=== PATIENT | female | born 1965 | race American Indian/Alaskan Native ===

== ENCOUNTER 2016-12-03 10:04 | Emergency (ER) | payer BC, OTHER ==
[2016-12-03 10:05] VITALS: BMI 36.8
[2016-12-03 10:27] VITALS: TEMP 98.5
--- NOTE | 2016-12-03 11:25 | ED PDOC ---
Arrival/HPI - General Chief Complaint: Lower Extremity Problem/Injury Time Seen by Provider: 12/03/16 11:06 Historian: Patient - History of Present Illness Narrative History of Present Illness (Text): 12/03/16 11:11 Tamanna Friedman is a 51 year old female, whose past medical history includes hyperlipidemia, who presents to the emergency department complaining of left leg pain and swelling for three weeks. Patient notes that she cannot bend her leg and has been wearing a brace and taking Tylenol and Motrin to some relief. Patient states that she saw her PMD this morning for a regular check-up and was prescribed an X-ray, directing patient to emergency department. Patient says that she has had similar symptoms before on her right leg which was found to be tendonitis. Patient denies any fever, chills, chest pain, shortness of breath, nausea, vomiting, diarrhea, urinary symptoms, back pain, neck pain, headache, dizziness, or any other complaints. PMD: Dr. Contreras Time/Duration: < month Symptom Onset: Gradual Symptom Course: Unchanged Severity Level: Mild Activities at Onset: Light Context: Home Past Medical History - Provider Review Nursing Documentation Reviewed: Yes - Cardiac Hx Hypertension: Yes - Pulmonary Hx Respiratory Disorders: No - Neurological Hx Neurological Disorder: No - HEENT Hx HEENT Disorder: No - Renal Hx Renal Disorder: No - Endocrine/Metabolic Hx Endocrine Disorders: No - Hematological/Oncological Hx Blood Disorders: No - Integumentary Hx Dermatological Disorder: No - Musculoskeletal/Rheumatological Hx Back Pain: Yes Hx Spinal Stenosis: Yes - Gastrointestinal Hx Gastrointestinal Disorders: No - Genitourinary/Gynecological Hx Genitourinary Disorders: No - Psychiatric Hx Psychophysiologic Disorder: No Hx Substance Use: No - Surgical History Hx Appendectomy: Yes Hx Tubal Ligation: Yes Family/Social History - Physician Review Nursing Documentation Reviewed: Yes Family/Social History: No Known Family HX Smoking Status: Never Smoked Hx Alcohol Use: Yes Frequency of alcohol use: Socially Hx Substance Use: No Allergies/Home Meds Allergies/Adverse Reactions: Allergies Latex, Natural Rubber Allergy (Verified 12/03/16 10:20) RASH shellfish derived Allergy (Verified 12/03/16 10:20) RASH Home Medications: Home Meds Medication Instructions Recorded Confirmed Crestor 10 mg PO DAILY 01/30/15 12/03/16 Cholecalciferol (Vitamin D3) 1 cap PO MWF 12/03/16 12/03/16 [Vitamin D3] Folic Acid 1 tab PO DAILY 12/03/16 12/03/16 Tramadol HCl [Ultram] 50 mg PO PRN PRN 12/03/16 12/03/16 Review of Systems - Physician Review All systems were reviewed & negative as marked: Yes - Review of Systems Constitutional: absent: Fevers, Night Sweats Eyes: absent: Vision Changes ENT: absent: Hearing Changes Respiratory: absent: SOB, Cough Cardiovascular: absent: Chest Pain, Syncope Genitourinary Female: absent: Dysuria, Urine Output Changes Musculoskeletal: Other (Left leg pain and swelling) Skin: absent: Rash Neurological: absent: Headache Endocrine: absent: Diaphoresis Hemo/Lymphatic: absent: Easy Bleeding Psychiatric: absent: Depression Physical Exam - Physical Exam Narrative Physical Exam (Text): Constitutional: No acute distress. Head: Normocephalic. Atraumatic. Eyes: PERRL. ENT: Moist mucous membranes. Neck: Supple. Cardiovascular: Regular rate. GI: Soft. Nontender. Nondistended. Back: No CVA tenderness. Musculoskeletal: No erythema, no warmth. Able to flex left leg but not fully. Mild increase of edema in left knee. Skin: No rash. Neurologic: Alert, no focal deficit. Vital Signs Reviewed: Yes Vital Signs Temp Pulse Resp BP Pulse Ox 12/03/16 12:05 64 18 136/86 96 12/03/16 10:25 98.5 F 67 16 138/90 95 Temperature: Afebrile Blood Pressure: Normal Pulse: Regular Respiratory Rate: Normal Appearance: Positive for: Well-Appearing, Non-Toxic, Comfortable Pain Distress: None Mental Status: Positive for: Alert and Oriented X 3 Medical Decision Making ED Course and Treatment: 12/03/16 11:06 Impression: 51 year old female complaining of left leg pain and swelling for 3 weeks. Plan: -- Left Knee X-ray -- LE Ultrasound negative for DVT. -- Reassess and disposition Progress Notes: 12/03/16 13:02 Left Knee X-ray: Creator : Gerald Norris MD FINDINGS: BONES:No obvious fracture. JOINTS:No significant degenerative changes. Inferior patellar osteophytes. JOINT EFFUSION:None. OTHER FINDINGS:High-riding patella. Suprapatellar joint effusion. Evaluate for patellar tendon rupture. IMPRESSION:High-riding patella. Suprapatellar joint effusion. Evaluate for patellar tendon rupture. Discussed with Dr. Ochoa at approximately 12:35 p.m. on 12/03/2016. Patient with ability to extend and hold knee extended. Patient refused crutches and knee brace. Dr. Contreras informed of case after patient discharged, states he will call patient now to arrange follow up. - RAD Interpretation Radiology Orders: 12/03/16 11:24 KNEE LEFT 2 VIEWS (AP & LAT) [RAD] Stat KNEE WITH PATELLA LEFT 3 VIEW [RAD] Stat 12/03/16 11:45 DUPLEX LOWER EXTRM VEIN LEFT [US] Stat Disposition/Present on Arrival - Present on Arrival Any Indicators Present on Arrival: No History of DVT/PE: No History of Uncontrolled Diabetes: No Urinary Catheter: No History of Decub. Ulcer: No History Surgical Site Infection Following: None - Disposition Have Diagnosis and Disposition been Completed?: Yes Diagnosis: Knee effusion Disposition: HOME/ ROUTINE Disposition Time: 12:51 Patient Plan: Discharge Condition: STABLE Discharge Instructions (ExitCare): Swollen Knee Joint (ED) Referrals: Chuck Contreras MD [Primary Care Provider] - Follow up with primary
[2016-12-03 12:10] VITALS: BP 136/86; PULSE 64; RESP 18; O2SAT 96
--- NOTE | 2016-12-03 12:32 | RAD ---
PROCEDURE: Left Knee Radiographs. HISTORY: Pain. COMPARISON: None. FINDINGS: BONES: No obvious fracture. JOINTS: No significant degenerative changes. Inferior patellar osteophytes. JOINT EFFUSION: None. OTHER FINDINGS: High-riding patella. Suprapatellar joint effusion. Evaluate for patellar tendon rupture. IMPRESSION: High-riding patella. Suprapatellar joint effusion. Evaluate for patellar tendon rupture. Discussed with Dr. Ochoa at approximately 12:35 p.m. on 12/03/2016.
--- NOTE | 2016-12-03 13:07 | US ---
HISTORY: atraumatic L leg swelling . PRIORS: None. FINDINGS: 2-D, color and duplex Doppler analysis of the lower extremity venous circulation using routine protocol from the femoral veins through the popliteal veins. Venous compressibility: Normal. Flow and augmentation patterns: Normal. Visualized veins upper third of calf: Normal. Perez cyst: None. IMPRESSION: No sonographic or Doppler evidence for DVT in left lower extremity.
== END 2016-12-03 13:30 | disposition home or self-care (01) ==
LOC: ED 10:04
DX: M25.461 Effusion, right knee (principal); I10 Essential (primary) hypertension; E78.5 Hyperlipidemia, unspecified